=== PATIENT | male | born 1980 | race Caucasian/White ===

== ENCOUNTER 2016-09-22 14:52 | Emergency (ER) | payer BC, OTHER ==
[2016-09-22] MEDS ORDERED: predniSONE 20 MG Tab PO STA (15:47)
--- NOTE | 2016-09-22 15:50 | EDM.PDOC ---
ED HPI GENERAL MEDICAL PROBLEM - General Chief Complaint: Respiratory Problem Stated Complaint: TROUBLE BREATHING X3 WEEKS Time Seen by Provider: 09/22/16 15:09 Source of Information: Reports: Patient, RN Notes Reviewed History Limitations: Reports: No Limitations - History of Present Illness INITIAL COMMENTS - FREE TEXT/NARRATIVE: The patient states that he has been experiencing shortness of breath with wheezing for the past 3 weeks. He has had rhinorrhea. He occasionally has a dry cough. No recent fever. His symptoms are worse if he is supine. He was seen at the [facility] in clinic about 2 weeks ago. He states that no tests were done, but he was prescribed a Z-Catarino and a Medrol Dosepak, which she states did not help at all. He then followed up with his PCP, Dr. García, about one week ago. A chest radiograph was apparently negative. He was prescribed an albuterol MDI which he has been using every 3-1/2 to 4 hours. He states that it works for about one hour. His last use was about noon today. He states that he underwent an echocardiogram this past 09/18/2016, but he does not know the results. Upper Chest Pain Score (Numeric/FACES): 3 - Related Data Allergies Allergy/AdvReac Type Severity Reaction Status Date / Time No Known Allergies Allergy Verified 09/22/16 15:41 Home Meds: Home Meds Budesonide [Pulmicort Flexhaler] 1 - 2 inhalation IH BID #1 [email or web address] 09/22/16 [Rx] predniSONE 20 mg PO WITHBREAKFAST #5 tablet 09/22/16 [Rx] Past Medical History Cardiovascular History: Reports: Other (See Below) (Atrial septal defect) Gastrointestinal History: Reports: Irritable Bowel Syndrome - Past Surgical History Male Surgical History: Reports: Vasectomy Social & Family History - Family History Family Medical History: Noncontributory - Tobacco Use Smoking Status *Q: Never Smoker Other Tobacco Use Within Last Twelve Months: Chews 3/4 cans per day - Alcohol Use Alcohol Use History: Yes Alcohol Use Frequency: Socially - Recreational Drug Use Recreational Drug Use: No - Living Situation & Occupation Living situation: Reports: , with Spouse, with Family (2 kids) Occupation: Employed (Sales) ED ROS GENERAL - Review of Systems Review Of Systems: See Below Constitutional: Reports: No Symptoms HEENT: Reports: No Symptoms Respiratory: Reports: No Symptoms Cardiovascular: Reports: No Symptoms Endocrine: Reports: No Symptoms GI/Abdominal: Reports: No Symptoms : Reports: No Symptoms Musculoskeletal: Reports: No Symptoms Skin: Reports: No Symptoms Neurological: Reports: No Symptoms Psychiatric: Reports: No Symptoms Hematologic/Lymphatic: Reports: No Symptoms Immunologic: Reports: No Symptoms ED EXAM, GENERAL - Physical Exam Exam: See Below Exam Limited By: No Limitations General Appearance: Alert, WD/WN, No Apparent Distress Eye Exam: Bilateral Eye: Normal Inspection Ears: Normal External Exam, Normal Canal, Hearing Grossly Normal, Normal TMs Nose: Normal Inspection, Normal Mucosa, No Blood Throat/Mouth: Normal Inspection, Normal Lips, Normal Teeth, Normal Gums, Normal Oropharynx, Normal Voice, No Airway Compromise Head: Atraumatic, Normocephalic Neck: Normal Inspection, Supple, Non-Tender, Full Range of Motion. No: Lymphadenopathy (L), Lymphadenopathy (R) Respiratory/Chest: No Respiratory Distress, No Accessory Muscle Use, Rhonchi ( scattered). No: Crackles, Wheezing Cardiovascular: Normal Peripheral Pulses, Regular Rate, Rhythm, No Gallop, No JVD, No Murmur, No Rub Peripheral Pulses: 4+: Radial (L), Radial (R) GI/Abdominal: Normal Bowel Sounds, Soft, Non-Tender, No Organomegaly, No Distention, No Abnormal Bruit, No Mass (Male) Exam: Deferred Rectal (Males) Exam: Deferred Back Exam: Normal Inspection, Full Range of Motion, NT Extremities: Normal Inspection, Normal Range of Motion, No Pedal Edema, Normal Capillary Refill Neurological: Alert, Oriented, Normal Cognition, No Motor/Sensory Deficits Psychiatric: Normal Affect Skin Exam: Warm, Dry, Intact, Normal Color, No Rash Lymphatic: No Adenopathy Course - Vital Signs Last Recorded V/S: Last Vital Signs Temp 36.2 C 09/22/16 14:59 Pulse 81 09/22/16 16:20 Resp 18 09/22/16 16:20 BP 115/86 09/22/16 16:20 Pulse Ox 96 09/22/16 16:20 - Orders/Labs/Meds Meds: Medications Discontinued Medications Generic Name Dose Route Start Last Admin Trade Name Freq PRN Reason Stop Dose Admin Prednisone 60 mg 09/22/16 15:47 09/22/16 16:18 Prednisone PO 09/22/16 15:48 60 mg ONETIME STA Administration - Re-Assessments/Exams Free Text/Narrative Re-Assessment/Exam: 09/22/16 15:44 The patient's symptoms are consistent with allergic rhinitis and allergic reactive airway disease. I will prescribe a five-day course of prednisone, starting today, along with Pulmicort, and [id number] Nasacort, which I am recommending he take until the hay harvest season is over. Departure - Departure Time of Disposition: 15:46 Disposition: Home, Self-Care 01 Condition: Good Clinical Impression: Allergic rhinitis, Reactive airway disease that is not asthma - Discharge Information Prescriptions: Budesonide [Pulmicort Flexhaler] 1 - 2 inhalation IH BID #1 aer.pow.ba predniSONE 20 mg PO WITHBREAKFAST #5 tablet Instructions: Nasal Allergies, [id number], Allergic Rhinitis Referrals: Aleks Hernandez MD [Primary Care Provider] - Forms: ED Department Discharge Additional Instructions: You were seen in the emergency room for shortness of breath, wheezing, coughing , and nasal congestion/runny nose for the past 3 weeks. On examination, it appears you are suffering from hayfever with reactive airway disease. You have been started on the steroid prednisone. Take 1 tablet with breakfast each morning, starting tomorrow morning, 09/23/2016. Finish the entire prescription unless told otherwise by a doctor. Take 1-2 puffs of Pulmicort twice a day, as prescribed. You will likely need to continue this medicine until the hay harvesting season is over. Purchase and use an [id number] nasal steroid spray, such as Nasacort or's , and use as directed. You will likely need to continue this medicine until the hay harvesting season is over. Follow-up with Dr. García as needed. If any other problems, please do not hesitate to return to the ER.
[2016-09-22 16:26] VITALS: BP 115/86
== END 2016-09-22 16:20 | disposition home or self-care (01) ==
LOC: JD.ED 14:52
DX: J30.9 Allergic rhinitis, unspecified (principal); F17.290 Nicotine dependence, other tobacco product, uncomplicated; Z98.52 Vasectomy status
CPT/HCPCS: 99284; A9270; 99283

== ENCOUNTER 2024-08-16 09:42 | Emergency (ER) | payer BC ==
[2024-08-16 10:09] LABS: BASOPHILS ABSOLUTE AUTO 0.1 K/mm3 (0.0-0.2); BASOPHILS PERCENT AUTO 0.4 % (0.0-1.0); EOSINOPHILS ABSOLUTE AUTO 0.2 K/mm3 (0.0-0.4); EOSINOPHILS PERCENT AUTO 1.0 % (0.0-6.0); IMMATURE GRAN ABSOLUTE AUTO 0.04 K/mm3 (0.00-0.05); IMMATURE GRAN PERCENT AUTO 0.3 % (0.0-0.4); LYMPHOCYTES ABSOLUTE AUTO 2.3 K/mm3 (1.0-4.8); LYMPHOCYTES PERCENT AUTO 16.1 % (24.0-44.0); MEAN PLATELET VOLUME 9.8 fl (9.4-12.4); MONOCYTES ABSOLUTE AUTO 1.0 K/mm3 (0.0-0.8); MONOCYTES PERCENT AUTO 6.8 % (0.0-8.0); NEUTROPHILS ABSOLUTE AUTO 10.8 K/mm3 (1.8-7.7); NEUTROPHILS PERCENT AUTO 75.4 % (41.0-71.0); NRBC ABSOLUTE 0.00 (0.00-0.02); NRBC PERCENT 0.0 % (0.0-0.2); PLATELET COUNT,PLT 324 K/mm3 (150-400); RED BLOOD CELL COUNT 5.43 M/mm3 (4.52-5.90); WHITE BLOOD CELL COUNT,WBC 14.35 K/mm3 (3.9-11.3)
[2024-08-16] MEDS: Sodium Chloride 0.9% 10 ML Syringe FLUSH ONE (10:09)
[2024-08-16] MEDS: Iopamidol 612 MG/ML 100 ML Bottle IVPUSH ONE (10:09)
[2024-08-16 10:37] LABS: INR 1.03
[2024-08-16 10:43] LABS: A/G RATIO 1.2 (1-2); ALANINE AMINOTRANSFERASE,ALT 43.0 U/L (16-63); ASPARTATE AMNIOTRANSFERASE,AST 33.0 U/L (15-37); BILIRUBIN TOTAL 0.8 mg/dL (0.2-1.0); BLOOD UREA NITROGEN,BUN 14.0 mg/dL (7-18); CARBON DIOXIDE,CO2 25.0 mEq/L (21-32); CHLORIDE,CL 101.0 mEq/L (98-107); CREATINE KINASE,CK 462.0 U/L (39-308); CREATININE 1.2 mg/dL (0.7-1.3); EST CRCL DRUG DOSING (CG) 94.19 mL/min; ESTIMATED GFR 78.0 mL/min (>60); GLUCOSE RANDOM 103.0 mg/dL (70-99); POTASSIUM,K 4.2 mEq/L (3.5-5.1); PROTEIN TOTAL,TP 8.4 g/dl (6.4-8.2); SODIUM,NA 137.0 mEq/L (136-145)
[2024-08-16 12:06] VITALS: BP 150/102; PULSE 78
== END 2024-08-16 11:55 | disposition home or self-care (01) ==
LOC: JD.ED 09:42
DX: K92.1 Melena (principal); K52.9 Noninfective gastroenteritis and colitis, unspecified; Z79.899 Other long term (current) drug therapy
CPT/HCPCS: 36415; 71260; 74177; 80053; 82550; 83690; 83735; 85025; 85610; 96360; 99284; J7030; Q9967; 99283